=== PATIENT | male | born 1995 | race African-American/Black ===

== ENCOUNTER 2022-01-14 12:19 | Emergency (ER) | payer OTHER, SELFPAY ==
[2022-01-14 12:22] VITALS: BP 120/76; PULSE 109; RESP 18; TEMP 37.4; O2SAT 100
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
== END 2022-01-14 15:13 | disposition left against medical advice (07) ==
LOC: ANHED 15:08
DX: Z53.21 Procedure and treatment not carried out due to patient leaving prior to being seen by health care provider (principal)
CPT/HCPCS: 99199

== ENCOUNTER 2022-03-13 12:57 | Emergency (ER) | payer OTHER, SELFPAY ==
--- NOTE | 2022-03-13 13:09 | ED.MALEGU ---
HPI - Male Genitourinary General Chief complaint: Urogenital-Male Stated complaint: STD Time Seen by Provider: 03/13/22 13:09 Source: patient Mode of arrival: ambulatory Limitations: no limitations History of Present Illness HPI Narrative: 27-year-old male presents for treatment for Trichomonas. Reports that his girlfriend tested positive yesterday. States that this is his only partner. Patient does not want any testing done. He is not having any other symptoms. All systems reviewed and negative except as noted above. Related Data Allergies Allergy/AdvReac Type Severity Reaction Status Date / Time No Known Allergies Allergy Verified 03/13/22 13:10 Review of Systems Review of Systems: CONSTITUTIONAL: Denies fever, chills, or sweats. EYES: Denies visual changes, redness, or discharge. ENT: Denies rhinorrhea, congestion, sore throat, or otalgia. CARDIOVASCULAR: Denies chest pain, palpitations, or edema. RESPIRATORY: Denies cough or dyspnea. GASTROINTESTINAL: Denies abdominal pain, nausea, vomiting, or diarrhea. GENITOURINARY: Denies dysuria or hematuria. SKIN: Denies rash or itching. MUSCULOSKELETAL: Denies back pain, joint pain, or myalgia. NEUROLOGIC: Denies headache, numbness, or weakness. PSYCHIATRIC: Denies anxiety or depression. All other systems reviewed are negative, except as documented in HPI. PMFSH Comments At time of signature, agree with nursing past medical, surgical, social and family history. There is no relevant family history pertinent to the presenting complaint. Exam Narrative: GENERAL: This is a well-nourished, well-developed patient, in no apparent distress. HEAD: normocephalic, atraumatic. EYES: PERRL. Sclera clear/white. Vision is grossly intact. EARS: External ears normal NOSE: External nose normal NECK: Neck supple, non-tender without lymphadenopathy, masses or thyromegaly. CARDIOVASCULAR: Regular rate and rhythm without murmurs, gallops, or rubs. RESPIRATORY: Clear to auscultation. Breath sounds equal bilaterally. No wheezes, rales, or rhonchi. SKIN: warm, Dry, intact with no suspicious lesions or rash, good texture and turgor. NEURO: awake, alert, and oriented to person, place and time. There were no obvious focal neurologic abnormalities. EXTREMITIES: No joint tenderness, effusion, or edema noted. Course Course Level of Care: Express Care Visit Vital Signs Vital signs: Reviewed MDM - Male Genitourinary MDM Narrative Medical decision making narrative: patient refused STI testing today. Will treat with Flagyl due to exposure. Patient is aware of diagnosis, understands and agrees to treatment plan. Anticipatory guidance given. Patient agrees to follow-up as directed and is aware of reasons to seek care at the emergency department. Portions of this record may have been created with voice recognition software Discharge Plan Discharge Clinical Impression: Trichomoniasis Patient Disposition: Home, Self-Care Condition: Stable Instructions: Antibiotic Form, Trichomoniasis (ED) Additional Instructions: Take antibiotic as prescribed until gone to treat Trichomonas. You were not tested for Trichomonas today, you are being treated due to exposure. Avoid all sexual activity for the next 2-3 weeks. If symptoms continue follow-up with your primary care physician. Prescriptions: New metronidazole 500 mg tablet 500 mg PO Q12H 7 Days Qty: 14 0RF Follow-up/Referrals: PHYSICIAN,TELECOMMUNICATION SYSTEMS DESIGNER [Primary Care Provider] - Time of Disposition: 13:14
[2022-03-13 13:11] VITALS: BP 117/70; PULSE 120; RESP 20; TEMP 36.8; O2SAT 100
== END 2022-03-13 13:18 | disposition home or self-care (01) ==
PROVIDERS: Emergency Provider Nurse Practitioner Family
DX: A59.9 Trichomoniasis, unspecified (principal)
CPT/HCPCS: 99213; G0463

== ENCOUNTER 2022-09-16 09:21 | Emergency (ER) | payer OTHER, SELFPAY ==
--- NOTE | 2022-09-16 09:28 | ED.EYEPROB ---
HPI - Eye Problem General Chief complaint: Eye Problems Stated complaint: Left Eye Irritation Time Seen by Provider: 09/16/22 09:57 Source: patient and RN notes reviewed Mode of arrival: ambulatory Limitations: no limitations History of Present Illness HPI Narrative: 27 year old male presents with concern for left eye irritation and drainage. He reports symptoms started yesterday. He reports his eye is irritated and red. He reports his right eye is starting to have similar symptoms. Reports his daughter recently had ariadne BURGOS chief complaint: eye redness Related Data Allergies Allergy/AdvReac Type Severity Reaction Status Date / Time No Known Allergies Allergy Verified 09/16/22 09:53 Review of Systems Review of Systems: CONSTITUTIONAL: Denies malaise, chills, sweats, or fever. EYES: Denies visual changes. Reports bilateral redness, irritation, discharge. ENT: Denies rhinorrhea, congestion, sinus pain, otalgia or sore throat. SKIN: Denies rash or itching. NEUROLOGIC: Denies numbness, weakness, or headache. PSYCHIATRIC: Denies anxiety or depression. All systems reviewed & are unremarkable except as noted in HPI and below PMFSH Comments At time of signature, agree with nursing past medical, surgical, social and family history. There is no relevant family history pertinent to the presenting complaint Exam Narrative: GENERAL: Well-appearing, well-nourished, and in no acute distress. HEAD: Normocephalic, atraumatic. EYES: PERRLA and EOMI. No nystagmus. Bilateral sclera and conjunctivae injected copious watery drainage. Upper and lower eyelid unremarkable, no periorbital edema noted ENT: Nares clear. Mucous membranes moist. TM pearly verma with sharp light reflex bilaterally; no tragal tenderness. NECK: Supple. CHEST: No respiratory distress. Speaks in full sentences. HEART: Regular rate and rhythm. SKIN: Warm, dry, no visible rash. NEURO: Alert and oriented x3. PSYCH: Normal mood and affect Course Course Emergency Course: Patient is aware of diagnosis, understands and agrees to treatment plan. Anticipatory guidance given. Patient agrees to follow-up as directed and is aware of reasons to seek care at the emergency department. Portions of this record may have been created with voice recognition software Level of Care: Express Care Visit Vital Signs Vital signs: Reviewed. MDM - Eye Problem MDM Narrative Medical decision making narrative: Consideration of the following conditions may be warranted for the presenting problem, they are not final diagnoses: Bacterial conjunctivitis, allergic conjunctivitis, viral conjunctivitis, foreign body, blepharitis, chalazion, hordeolum, corneal abrasion, preseptal cellulitis, orbital cellulitis. No evidence of proptosis, ophthalmoplegia, vision loss, pain with eye movement. Exam findings show no acute concerns or changes; patient is non-toxic appearing and is in no distress. Patient is appropriate for outpatient treatment and follow-up. Critical Care Time Critical Care Time Critical Care Time: No Discharge Plan Discharge Clinical Impression: Conjunctivitis Qualifiers: Conjunctivitis type: acute Acute conjunctivitis type: bacterial Laterality: bilateral Qualified Code(s): H10.33 - Unspecified acute conjunctivitis, bilateral Patient Disposition: Home, Self-Care Condition: Stable Instructions: Conjunctivitis (ED) Additional Instructions: Do not touch or rub your eye. Use a warm or cool washcloth on your eye for comfort Use eyedrops as directed Practice good handwashing and hygiene to prevent spread of infection You may take Tylenol or ibuprofen for pain Follow-up with PCP or sling operator if condition is not improving in 2-3days. Go to the emergency room if you have pain behind your eye, pressure behind your eye, difficulty seeing, or other severe symptoms Prescriptions: New polymyxin B sulf-trimethoprim [Polytrim] 10,000 unit- 1 mg/mL drop
[2022-09-16 09:32] VITALS: BP 125/75; PULSE 92; RESP 16; TEMP 36.6; O2SAT 100
== END 2022-09-16 10:05 | disposition home or self-care (01) ==
PROVIDERS: Emergency Provider Nurse Practitioner
DX: H10.33 Unspecified acute conjunctivitis, bilateral (principal)
CPT/HCPCS: 99213; G0463

== ENCOUNTER 2023-07-30 15:10 | Emergency (ER) | payer OTHER, SELFPAY ==
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
[2023-07-30 15:21] VITALS: BP 126/74; PULSE 118; RESP 16; O2SAT 99
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
== END 2023-07-30 15:55 | disposition home or self-care (01) ==
PROVIDERS: Emergency Provider Nurse Practitioner Family
DX: S62.301A Unspecified fracture of second metacarpal bone, left hand, initial encounter for closed fracture (principal); V86.96XA Unspecified occupant of dirt bike or motor/cross bike injured in nontraffic accident, initial encounter
CPT/HCPCS: 29125; 73130; 99214; G0463

== ENCOUNTER 2024-08-14 10:16 | Emergency (ER) | payer OTHER, SELFPAY ==
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
--- NOTE | ~2024-08-14 | XR_ITS ---
HISTORY: midline tenderness COMPARISON: None TECHNIQUE: 3 views of the thoracic spine were performed FINDINGS: No acute compression fracture is present. Bone mineralization is age-appropriate. No significant degenerative disease. IMPRESSION: No acute compression fracture, as detailed above. Reviewed, dictated and finalized at location A.
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
[2024-08-14 10:30] VITALS: BP 113/71; PULSE 84; RESP 18; TEMP 36.4; O2SAT 98
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
== END 2024-08-14 12:15 | disposition home or self-care (01) ==
PROVIDERS: Emergency Provider Nurse Practitioner Family
DX: M25.462 Effusion, left knee (principal); S90.32XA Contusion of left foot, initial encounter; S80.212A Abrasion, left knee, initial encounter; S29.012A Strain of muscle and tendon of back wall of thorax, initial encounter; V28.49XA Other motorcycle driver injured in noncollision transport accident in traffic accident, initial encounter
CPT/HCPCS: 72072; 73562; 73630; 99213; 99214; G0463

== ENCOUNTER 2025-01-11 17:52 | Emergency (ER) | payer SELFPAY ==
--- NOTE | ~2025-01-11 | XR_ITS ---
XR wrist RT min 3V INDICATION: injury . COMPARISON: None. FINDINGS: Frontal, lateral and oblique views of the right wrist were obtained. No acute fracture is seen. IMPRESSION: No acute fracture or dislocation. Reviewed, dictated and finalized at location S. ER FRAME BACK TENDER
--- NOTE | ~2025-01-11 | XR_ITS ---
XR elbow RT min 3V INDICATION: injury . COMPARISON: None. FINDINGS: AP, lateral and oblique views of the right elbow demonstrate no acute fracture or dislocation. IMPRESSION: No acute fracture or dislocation. Reviewed, dictated and finalized at location S. QUE REPAIRER
--- NOTE | ~2025-01-11 | XR_ITS ---
XR forearm RT 2V INDICATION: injury COMPARISON: None. FINDINGS: Frontal and lateral views of the right forearm demonstrate no acute fracture or dislocation. The soft tissues are unremarkable. IMPRESSION: 1. No acute fracture or dislocation is evident in the right forearm. Reviewed, dictated and finalized at location S. FIXTURE ASSEMBLER
--- NOTE | ~2025-01-11 | XR_ITS ---
XR hand RT min 3V INDICATION: injury . COMPARISON: None. FINDINGS: Frontal, lateral, and oblique views of the right hand demonstrate no acute fracture or dislocation. IMPRESSION: Radiographic examination of the right hand demonstrates no acute fracture or dislocation. Reviewed, dictated and finalized at location S. RENTAL SUPERVISOR IMPRESSION: Radiographic examination of the right hand demonstrates no acute fracture or di slocation.
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
--- OUTSIDE RECORDS SUMMARY | 2025-01-11 17:54 | XMS_ITS | Continuity of Care Document ---
Author Organization [place] - [facility], [facility] [place] Address [address] [place] [address] Assessment Encounter Date Assessment Date Assessment LastModified by Organization Details LastModified Time 12/01/2024 12/01/2024 29-year-old male presents for follow-up [...] - Please contact patient to schedule 2024 [id number] [email or web address] [facility] Physical, Occupational & Speech Medicine & Rehab, [address] [place], [address], 12/02/2024 12:49:51 Procedures None recorded. Surgeries None recorded. Imaging None recorded. Medication Orders meloxicam 15 mg tablet 2024 025 [id number], [address], [place], [place], [id number], 12/02/2024 12:49:51 Patient TargetsNo targets recorded. Patient InstructionsNo instructions recorded. Reason for Referral Physical Therapist Referral for Sprain of acromioclavicular ligament Please contact patient to schedule Referring Physician: Marco Lawrence, Orthopedic Surgery, Encounter Date: 12/01/2024 Problems Name Problem SNOMED Code Status Onset Date Resolution Date Notes Provider Name and Address Organization Details Recorded Time Pain of left shoulder region Active 2024 KELTON Elena, [employer] 15:30:40 Sprain of acromioclavicul ar ligament 97970203 Active 2024 Teena Wells, FLAT SURFACER [employer] [address] [facility], [place], [address], [employer] 16:30:16 Problem Notes None recorded. Medical Equipment [...] Not Available Vitals Date Recorded Body height Provider Name an d Address Organization Details Last Updated DateTime 12/01/2024 177.8 cm Lizz Rich [employer] 12/01/2024 15:42:17 Social History Question Answer Notes LastModified by Organizat ion Details LastModified Time Tobacco Smoking Status Current Every Day Smoker KELTON Elena, [employer] 10/26/2024 15:30:16 What Was The Date Of Your Most Recent Tobacco Screening? 12/01/2024 [email or web address] Information not available 12/01/2024 Sex: Unknown Functional Status Question Answer Note LastModified by Organization D etails LastModified Time What is your level of alcohol consumption? None [email or web address] Information not available 10/26/2024 Mental Status None recorded. Family History Nothing Reported. Medical History No medical history recorded. Past Encounters Encounter ID Performer Location Encounter Start Date Encounter Closed Date Diagnosis/Indication Diagnosis SNOMED-CT Code Diagnosis ICD10 Code Diagnosis IMO Codes Diagnosis Note [id number] Marco Lawrence MD [facility] [address] [facility], [address] [place] [address] 11/16/2024 14:27:44 11/16/2024 15:15:47 Pain of left shoulder region 1652255207 M25.512 [id number] Sprain of acromioclavicular ligament 05480173 S43.52XD [id number] Marco Lawrence MD [facility] [address] [place] [address] 12/01/2024 15:40:23 12/01/2024 16:24:58 Pain of left shoulder region 4037347468 M25.512 52663184 Sprain of acromioclavicular ligament 60447567 S43.52XD 446049 Health Concerns Section Related Observation LastModified by Organization Detai ls LastModified Time None Recorded Concern Status LastModified by Organization Details LastModified Time None Recorded Payers Encounter Date Sequence Insurance Name Policy Number Policy Do Covered Member ID Do Member ID Guarantor Name 12/01/2024 1 [facility] (MEDICAID HMO) [id number] Saul Isaac [id number] Saul Isaac
--- OUTSIDE RECORDS SUMMARY | 2025-01-11 17:54 | XMS_ITS | Continuity of Care Document ---
Author Organization [place] [facility] [employer] [facility], [facility] [place] Address [address] [facility], [address] [place] [address] Assessment Encounter Date Assessment Date Assessment LastModified [...] he presents in the sling. Rates pain 9/10. Review of systems per patient questionnaire Imaging: [...] in 2-3 weeks to check his progress. [email or web address] Not available 10/26/2024 16:26:16 Plan of Treatment Reminders Order Date Submit Date Provider Last Modified By Organization Details Last Modified Time Details Appointments Any 5 025 01:00PM Marco Lawrence MD Not available Not available Not available Lab None record ed. Referral None record ed. Procedures None record ed. Surgeries None record ed. Imaging None record ed. Medication Orders None record ed. Patient TargetsNo targets recorded. Patient InstructionsNo instructions recorded. Reason for Referral None Reported. Results Created Date Observation Date Name Description Value Unit Range Abnormal Flag Note LastModifiedBy Organization Detail LastModifiedTime 10/26/19 25 10/24/2024 XR, shoul elissa No observ ation record [...] Pain of left shoulder region Active 2024 Shannan Thompson, KELTON null, [employer] 15:30:40 Sprain of acromioclavicul ar ligament 31297507 Active 2024 Teena Wells, [facility] [address] [facility], [facility] [address], [place], [address] , [employer] 16:30:16 Problem Notes None recorded. Medical Equipment [...] Updated DateTime 10/26/2024 177.8 cm 30.1 kg/m2 93926.4 g 9 KELTON Elena [facility] [employer] [facility] 10/26/2024 15:29:25 Social History Question Answer Notes LastModified by Organizat ion Details LastModified Time Tobacco Smoking Status Current Every Day Smoker KELTON Elena null, [facility] 10/26/2024 15:30:16 What Was The Date Of Your Most Recent Tobacco Screening? 12/01/2024 [email or web address] Information not available 12/01/2024 Sex: Unknown Functional Status Question Answer Note LastModified by Organization D etails LastModified Time What is your level of alcohol consumption? None [email or web address] Information not available 10/26/2024 Mental Status None recorded. Family History Nothing Reported. Medical History No medical history recorded. Past Encounters Encounter ID Performer Location Encounter Start Date Encounter Closed Date Diagnosis/Indication Diagnosis SNOMED-CT Code Diagnosis ICD10 Code Diagnosis IMO Codes Diagnosis Note [id number] Marco Lawrence MD [facility] [address], [place] [address] 10/26/2024 15:20:21 10/28/2024 13:57:37 Pain of left shoulder region 4377236996 M25.512 46140698 Sprain of acromioclavicular ligament 24745819 S43.52XD 845518 Health Concerns Section Related Observation LastModified by Organization Detai ls LastModified Time None Recorded Concern Status LastModified by Organization Details LastModified Time None Recorded Payers Encounter Date Sequence Insurance Name Policy Number Policy Do Covered Member ID Do Member ID Guarantor Name 10/26/2024 1 [facility] (MEDICAID HMO) [id number] 0003 Saul Isaac [id number] Saul Isaac
--- OUTSIDE RECORDS SUMMARY | 2025-01-11 17:54 | XMS_ITS | Continuity of Care Document ---
Author Organization [place] - [facility] [employer] [facility], [facility] [place] Address [address] [facility], [address] [place] [address] Assessment Encounter Date Assessment Date Assessment LastModified by Organization Details LastModified Time 11/16/2024 11/16/2024 29-year-old patient presents today for [...] and continue with pain medications as needed. [email or web address] Not available 11/16/2024 15:58:38 Plan of Treatment Reminders Order Date Submit Date Provider Last Modified By Organization Details Last Modified Time Details Appointments Any 5 2024 01:00P Maddy Lawrence MD Not available Not available Not available Lab None recorded. Referral physical therapist referral - Please contact patient to schedule 2024 [address] [facility] Physical, Occupational & Speech Medicine & Rehab, [address] [place], [address], 11/17/2024 08:20:30 Procedures None recorded. Surgeries None recorded. Imaging None recorded. Medication Orders None recorded. Patient TargetsNo targets recorded. Patient InstructionsNo instructions recorded. Reason for Referral Physical Therapist Referral for Sprain of acromioclavicular ligament Please contact patient to schedule Referring Physician: Teena Wells, Orthopedic Surgery, Encounter Date: 11/16/2024 Results Created Date Observation Date Name Description [...] left shoulder region Active 2024 KELTON Elena, [place] [facility] [place] 15:30:40 Sprain of acromioclavicul ar ligament 78247920 Active 2024 Teena Wells [facility] [address], [address], [place], [address], [employer] 16:30:16 Problem Notes None recorded. Medical Equipment [...] Updated DateTime 11/16/2024 177.8 cm 30.1 kg/m2 63820.4 g Elyssa Smith CNA [employer] [facility] [employer] 11/16/2024 14:31:38 Social History Question Answer Notes LastModified by Organizat ion Details LastModified Time Tobacco Smoking Status Current Every Day Smoker KELTON Elena, [employer] [facility] [employer] 10/26/2024 15:30:16 What Was The Date Of Your Most Recent Tobacco Screening? 12/01/2024 [email or web address] Information not available 12/01/2024 Sex: Unknown Functional Status Question Answer Note LastModified by Organization D etails LastModified Time What is your level of alcohol consumption? None [email or web address] Information not available 10/26/2024 Mental Status None recorded. Family History Nothing Reported. Medical History No medical history recorded. Past Encounters Encounter ID Performer Location Encounter Start Date Encounter Closed Date Diagnosis/Indication Diagnosis SNOMED-CT Code Diagnosis ICD10 Code Diagnosis IMO Codes Diagnosis Note [id number] MD FRANDY Regalado[facility], [address] [address] 10/26/2024 15:20:21 10/28/2024 13:57:37 Pain of left shoulder region 3960828717 M25.512 [id number] Sprain of acromioclavicular ligament 93476904 S43.52XD [id number] MD FRANDY Reg[facility]_[place] [address], [address] [address] 11/16/2024 14:27:44 11/16/2024 15:15:47 Pain of left shoulder region 8253006961 M25.512 52950914 Sprain of acromioclavicular ligament 26033581 S43.52XD 055114 Health Concerns Section Related Observation LastModified by Organization Detai ls LastModified Time None Recorded Concern Status LastModified by Organization Details LastModified Time None Recorded Payers Encounter Date Sequence Insurance Name Policy Number Policy Do Covered Member ID Do Member ID Guarantor Name 11/16/2024 1 [facility] (MEDICAID HMO) [id number] Saul Isaac [id number] Saul Isaac
--- OUTSIDE RECORDS SUMMARY | 2025-01-11 17:54 | XMS_ITS | Clinical Summary ---
Author Organization [facility] [employer] Address [address] [place] [address] Care Team Providers Care Liquid Sugar Melter Name Role Phone Unavailable Primary Care Provider Unavailabl e Source Comments [facility] [employer],non-owned Affiliates and Associated Physician Practices is amultiple site organization consisting of ambulatory clinics and hospital sitesin [place], [place], [place] and [place]. This disclosure is being madepursuant to the Care Everywhere program and may not contain all information available regarding this patient. Last updated 17.[employer] [facility] [employer] Allergies No known active allergies Medications * Be aware that medications may not be up to date on this document. Alwaysverify current medications with the patient. triple antibiotic (NEOSPORIN) [id number] ointment Apply to affected area 3 times daily 30 g 2 Active acetaminophen (Tylenol) 325 MG tablet Take 2 (two) tablets by mouth every 4 hours as needed for Pain Maximum allowable Acetaminophen amount = 4 Grams (4000 mg) / 24 hours. 30 tablet 4 Active naproxen (Naprosyn) 500 MG tablet Take 1 (one) tablet by mouth 2 times daily 20 tablet 4 Active Active Problems Problem Noted Date Diagnosed Date School physical exam 09/28/2012 Immunizations Immunization Administration Dates Next Due TDAP (7yrs+) 07/26/2021 Family History Medical History Relation Name Comments Depression Brother 1 Asthma Brother 2 Heart Disease Father Hypertension Father Heart Disease Maternal Grandfather Asthma Maternal Grandmother COPD - Chronic Obstructive Pulmonary Disease Maternal Grandmother Cancer - Other Maternal Grandmother Depression Maternal Grandmother Hyperlipidemia Maternal Grandmother Hypertension Maternal Grandmother Asthma Mother COPD - Chronic Obstructive Pulmonary Disease Mother Cancer - Other Mother Depression Mother Gout Mother Hyperlipidemia Mother Hypertension Mother Cancer - Other Paternal Grandfather Cancer - Other Paternal Grandmother Relation Name Status Comments Brother 1 Alive Brother 2 Alive Father Alive Maternal Grandfather Maternal Grandmother Alive Mother Alive Paternal Grandfather Paternal Grandmother Sister Alive Social History Tobacco Use Types Packs/Day Years Used Date Smoking Tobacco: Every Day Cigarettes Smokeless Tobacco: Never Tobacco Cessation:Ready to Q uit: No; Counseling Given: Yes Alcohol Use Standard Drinks/Week Comments No 0 (1 standard drink = 0.6 oz pur e alcohol) AUDIT-C Answer Date Recorded Q1: How often do you have a drink containing alcohol? Never 07/07/2023 Q2: How many drinks containi ng alcohol do you have on a typical day when you are drinking? Patient does not drink Q3: How often do you have si x or more drinks on one occasion? 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 Gender Identity Not on file Sexual Orientation Not on file Occupation Industry Job Start Date Job End Date student Not on file Not on file Not on file Last Filed Vital Signs Vital Sign Reading Time Taken Comments Blood Pressure 124/76 07/08/2023 2:06 AM CDT Pulse 80 07/08/2023 2:06 AM CDT Temperature 37.1 C (98.7 F) 07/08/2023 2:06 AM CDT Respiratory Rate 16 07/08/2023 2:06 AM CDT Oxygen Saturation 97% 07/08/2023 2:06 AM CDT Inhaled Oxygen Concentration - - Weight 90.7 kg (200 lb) 07/07/2023 11:01 PM CDT Height 180.3 cm (5' 11) 07/07/2023 11:01 PM CDT Body Mass Index 27.89 07/07/2023 11:01 PM CDT Plan of Treatment Health Maintenance Due Date Last Done Comments HIV SCREENING 12/31/2010 HEPATITIS C SCREENING 12/27/2013 HEPATITIS B VACCINE (1 of 3 - 19+ 3-dose series) 12/31/2014 PNEUMOCOCCAL VACCINE (1 of 2 - PCV) 12/31/2014 HPV VACCINE (1 - 3-dose SCDM series) 12/31/2022 DEPRESSION SCREENING 02/11/2024 COVID-19 VACCINE (1 - 2024-2 6 season) 2024 INFLUENZA VACCINE (#1) 2024 DTAP/TDAP/TD VACCINES (2 - T d or Tdap) 07/27/2031 07/26/2021 ZOSTER VACCINE (1 of 2) 12/31/2045 HIB VACCINE Aged Out No longer eligi ble based on patient's age to complete this topic MENINGOCOCCAL (Group B) VACC INE SHARED DECISION-MAKING Aged Out No longer eligibl e based on patient's age to complete this topic MENINGOCOCCAL GROUPS A/C/Y/W VACCINE Aged Out No longer eligible b ased on patient's age to complete this topic [place] [address] [address] MEDICAID - [place] [facility] [employer] Liability
[2025-01-11 18:17] VITALS: BP 134/71; PULSE 121; RESP 18; TEMP 37.3; O2SAT 100
[2025-01-11] MEDS: HYDROcodone/acetaminophen (*CRX) 5-325 MG TABLET 1 TAB PO (21:58)
[2025-01-11] MEDS: ACETAMINOPHEN 325 MG TABLET 650 MG PO (21:59)
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
[2025-01-11] MEDS: SULFAMETHOXAZOLE/TRIMETHOPRIM 800/160 MG DS TABLET 1 TAB PO (22:49)
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
[2025-01-11 23:12] VITALS: BP 130/81; PULSE 98; RESP 16; O2SAT 100
== END 2025-01-11 23:00 | disposition home or self-care (01) ==
PROVIDERS: Emergency Provider Physician Assistant
DX: L03.113 Cellulitis of right upper limb (principal); S51.011A Laceration without foreign body of right elbow, initial encounter; V86.56XA Driver of dirt bike or motor/cross bike injured in nontraffic accident, initial encounter
CPT/HCPCS: 73080; 73090; 73110; 73130; 87070; 87186; 87205; 99284; A9270